=== PATIENT | male | born 1965 | race Caucasian/White ===

== ENCOUNTER → 2019-10-02 | Outpatient (CLI) | payer OTHER | LOC: COL.RAD 14:46 | DX: J32.9 Chronic sinusitis, unspecified (principal); R06.2 Wheezing; J34.89 Other specified disorders of nose and nasal sinuses ==

== ENCOUNTER → 2024-05-30 | Outpatient (CLI) | payer OTHER | LOC: COL.RAD 10:29 | DX: M19.071 Primary osteoarthritis, right ankle and foot (principal) ==